=== PATIENT | male | born 1960 | race Hispanic/Latino ===

== ENCOUNTER 2019-07-03 08:27 | Observation (INO) | payer BC, SELFPAY ==
[2019-07-03 09:10] LABS: #Basophils 0.1 thou/uL (0.0-0.2); #Eosinphils 0.1 thou/uL (0.0-0.7); #Lymphocytes 1.5 thou/uL (1.20-3.40); #Monocytes 0.5 thou/uL (0.11-0.59); #Neutrophils 10.6 thou/uL (1.40-6.50); %Basophils 0.5 % (0.0-1.0); %Lymphocytes 11.7 % (21.0-51.0); %Monocytes 4.1 % (0.0-10.0); %Neutrophils 82.8 % (42.0-75.0); Hemoglobin 14.1 g/dL (14.0-18.0); Mean Corpuscular HGB CONC 31.8 g/dL (32.0-36.0); Mean Corpuscular Hemoglobin 26.9 pg (27.0-31.0); Mean Corpuscular Volume 84.6 fL (78.0-98.0); Mean Platelet Volume 6.8 fL (7.4-10.4); Platelet Count 367 thou/uL (130-400); RBC Distribution Width 12.9 % (11.5-14.5); Red Blood Cell (RBC) Count 5.24 mill/uL (4.70-6.10); White Blood Cell (WBC) Count 12.8 thou/uL (4.8-10.8)
[2019-07-03 09:30] LABS: ALT (SGPT) 22 U/L (8-55); AST (SGOT) 22 U/L (5-34); Albumin 4.2 g/dL (3.5-5.0); Alkaline Phosphatase 137 U/L (40-110); Anion Gap 12 mmol/L (10-20); BUN (Urea Nitrogen) 8 mg/dL (8.4-25.7); Bilirubin, Total 0.7 mg/dL (0.2-1.2); Calc. Creatinine Clearance 0 mL/min (70-130); Calcium 9.3 mg/dL (7.8-10.44); Carbon Dioxide 24 mmol/L (22-29); Chloride 100 mmol/L (98-107); Estimated GFR-MDRD Greater than 90; Globulin 3.6 g/dL (2.4-3.5); Glucose 127 mg/dL (70-105); Lipase 22 U/L (8-78); Protein, Total 7.8 g/dL (6.0-8.3); Sodium 132 mmol/L (136-145)
[2019-07-03 09:32] LABS: Bilirubin Negative (Negative); Blood, Urine 1+ (Negative); Clarity Clear (Clear); Glucose, Urine (Dipstick) Normal (Negative); Leukocyte Negative Leu/uL (Negative); Nitrite Negative (Negative); Protein, Urine (Dipstick) Negative (Neg-Trace); Squamous Epithelial None Seen HPF (0-3); Urobilinogen Normal mg/dL (Less than 2); WBC/HPF 0-3 HPF (0-3)
[2019-07-03] MEDS ORDERED: Lidocaine Viscous Sol 2% 15 ml UD Cup ONE (09:33)
[2019-07-03] MEDS ORDERED: Mag-Al 1200 mg/1200 mg/30 ML UDCUP ONE (09:34)
[2019-07-03] MEDS ORDERED: Ondansetron PF 4 MG/2 ML Vial ONE ×2 (09:35→10:49)
[2019-07-03 09:38] LABS: Bacteria/HPF 1+ HPF (None Seen)
--- NOTE | 2019-07-03 10:10 | CT ---
EXAM: CT Abdomen Pelvis W Con PROVIDED CLINICAL HISTORY: Abdominal pain COMPARISON: None FINDINGS: The visualized lung bases are free of significant opacity. There is a 2.5 cm left adrenal mass, slightly enlarged with respect to 12/11/2007 but demonstrating fin dings compatible with adenoma on that study. The gallbladder appears moderately distended. With a conspicuous appearance to the cystic duct. There is question of minimal pericholecystic inflammatory change. There is no evidence for intrahepatic or extrahepatic biliary ductal dilatation. The liver, spleen, right adrenal gland and pancreas demonstrate an unremarkable CT appearance. Bilate ral renal cysts, without additional renal abnormality apparent. No bowel dilatation, additional inflammatory fat stranding, free fluid or free air apparent. The appe ndix appears normal. Vascular calcification and atherosclerotic plaque are noted involving the abdominal aorta and its bra nches. The osseous structures demonstrate no concerning lytic or blastic lesions. IMPRESSION: Moderate gallbladder distention with subtle pericholecystic inflammatory change suspected. Correlate with concerns for acute cholecystitis.
[2019-07-03] MEDS ORDERED: Rocuronium Bromide 10 MG/ML (10ML VIAL) ONE (10:49)
[2019-07-03] MEDS ORDERED: PHENYLEPHRINE-NS 100 MCG/ML 10 ML SYRINGE ONE (10:49)
[2019-07-03] MEDS ORDERED: Ketorolac Tromethamine 30 MG/ML VIAL ONE (10:49)
[2019-07-03] MEDS ORDERED: Lidocaine 1% PF 5 ML VIAL ONE (10:49)
[2019-07-03] MEDS ORDERED: PROPOFOL 200 MG/20 ML VIAL ONE (10:49)
[2019-07-03] MEDS ORDERED: Dexamethasone 20 MG/5 ML VIAL ONE (10:49)
[2019-07-03] MEDS ORDERED: Succinylcholine Chloride 20 MG/ML 10 ml SYRINGE FS ONE (10:49)
--- NOTE | 2019-07-03 11:05 | ULT ---
EXAM: Right upper quadrant ultrasound PROVIDED CLINICAL HISTORY: Abdominal pain COMPARISON: CT performed earlier same date FINDINGS: Visualized portions of the pancreas appear normal. Liver demonstrates no mass or intrahepatic biliary ductal dilatation. Common duct is nondilated. Gallbladder demonstrates a focal area of increased echogenicity without sh adowing in the region of the gallbladder neck. There is gallbladder wall thickening to 4 mm without pericholecystic fluid or sonographic Altman's sign. Right kidney demonstrates no hydronephrosis or solid mass. Simple appearing cyst seen. IMPRESSION: Nonshadowing stone/sludge ball in the region of the gallbladder neck with gallbladder wall thickening . Correlate with concerns for acute cholecystitis.
--- NOTE | 2019-07-03 12:41 | HP ---
HISTORY OF PRESENT ILLNESS: Mr. Ledezma is a 59-year-old man, presented to emergency department today with insidious-onset severe epigastric abdominal pain, which started approximately 1 hour after dinner yesterday. Pain was associated with multiple episodes of nausea, but no emesis. He endorses abdominal bloating. He has experienced similar pain approximately 2 weeks ago, which was also postprandial in nature. He denies any radiation with respect to the pain. He denies any fevers or chills. PAST MEDICAL HISTORY: Pertinent for essential hypertension, for which he is currently noncompliant with his medications. PAST SURGICAL HISTORY: Denies any previous surgeries. SOCIAL HISTORY: He is , lives at home with his . 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 He smokes 6 cigarettes per day and has done so for over 20 years. He denies any ethanol or illicit drug abuse. FAMILY HISTORY: Notable for essential hypertension and diabetes mellitus. He denies any family history of heart disease or cancer. CURRENT MEDICATIONS: He is supposed to be on some antihypertensives, but is noncompliant. ALLERGIES: THE PATIENT DENIES ANY KNOWN DRUG ALLERGIES. REVIEW OF SYSTEMS: Ten-point review of systems is essentially unremarkable except as stated in past medical history and chief complaint. PHYSICAL EXAMINATION: GENERAL: This reveals a 59-year-old normally-developed man, who is otherwise coherent and interactive and appears stated age. The patient is alert and oriented x3, and appears to be in no acute distress at the time of my evaluation. VITAL SIGNS: Blood pressure is 188/94, pulse is 95, respiratory rate is 19, temperature is 98.4 degrees Fahrenheit, and oxygen saturation is 98% on room air. HEENT: Normocephalic and atraumatic. Pupils are equally round and reactive to light and accommodation. He has no scleral icterus present. HEART: Regular rate and rhythm. No murmurs or gallops auscultated. LUNGS: Clear to auscultation bilaterally. His breathing is regular and nonlabored. ABDOMEN: Soft with epigastric tenderness to palpation. Liver and spleen are nonpalpable below costal margins. NEUROLOGIC: No focal deficits present. LABORATORY FINDINGS: Today include a CBC with 12,800 white blood cells, hemoglobin and hematocrit are 14.1 and 44.3 respectively. Platelet count is 367,000. Metabolic profile; sodium is 132, potassium is 4.0, chloride is 100, bicarb is 24, BUN is 8, creatinine is 0.68, and glucose is 127. Total bilirubin is 0.7. AST and ALT are normal at 22 and 22 respectively. Alkaline phosphatase is slightly elevated at 137. I have personally reviewed the CT scan of the abdomen and pelvis, which is remarkable for distended gallbladder with pericholecystic inflammatory changes. Gallbladder ultrasound was obtained, which is remarkable for nonshadowing ball of sludge or stone impacting gallbladder neck. There is gallbladder wall thickening with no significant pericholecystic fluid present. Common bile duct is normal in diameter for this patient's age at 4.6 mm. IMPRESSION: Acute cholecystitis with cholelithiasis. PLAN: Laparoscopic cholecystectomy. Above findings and plan has been discussed with the patient and his at bedside. I have informed him of the risks and benefits of proposed surgery to include, but not limited to bleeding, infection, injury to bile duct or surrounding structures. The patient indicates understanding information given. I have answered his questions. The patient has granted consent for this admission and surgical intervention. Job ID: [id number]
[2019-07-03] MEDS ORDERED: Iopamidol-370 76% 500 ML 1 ML ONE (13:35)
[2019-07-03] MEDS ORDERED: Fentanyl 100 MCG/2 ML VIAL ONE ×3 (13:58→17:32)
[2019-07-03] MEDS ORDERED: EPINEPHrine 1 MG/ML AMP ONE (14:27)
[2019-07-03] MEDS ORDERED: Bupivacaine 0.25% HCL 30 ML VIAL ONE (14:27)
[2019-07-03] MEDS ORDERED: Mag-Al 1200 mg/1200 mg/30 ML UDCUP PO PRN (17:08)
[2019-07-03] MEDS ORDERED: Ondansetron PF 4 MG/2 ML Vial IVP PRN (17:08)
[2019-07-03] MEDS ORDERED: Promethazine HCl 25 MG/ML VIAL SLOW IVP PRN (17:08)
[2019-07-03] MEDS ORDERED: Ondansetron HCl/PF 4 MG/2 ML Vial IVP PRN (17:08)
[2019-07-03] MEDS ORDERED: hydrALAZINE 20 MG/ML VIAL SLOW IVP PRN (17:08)
[2019-07-03] MEDS ORDERED: Calcium Carbonate 500 MG ChewTAB PO PRN (17:08)
[2019-07-03] MEDS ORDERED: Dextrose 50% Abboject 50 ML SYRINGE SLOW IVP PRN (17:08)
[2019-07-03] MEDS ORDERED: HYDROmorphone 2 MG/ML VIAL SLOW IVP PRN (17:08)
[2019-07-03] MEDS ORDERED: Promethazine HCl 25 MG/ML VIAL IM PRN (17:08)
[2019-07-03] MEDS ORDERED: Dextrose 5% in Water 1,000 ML IV PRN (17:08)
[2019-07-03] MEDS ORDERED: Meperidine HCl/PF 25 MG/ML VIAL SLOW IVP PRN (17:08)
[2019-07-03] MEDS ORDERED: traMADol HCl 50 MG TAB PO PRN ×2 (17:14)
[2019-07-03] MEDS ORDERED: Labetalol HCl 100 MG/20 ML VIAL ONE (17:16)
[2019-07-03] MEDS: Ketorolac Tromethamine 30 MG/ML VIAL IVP SCH ×2 (19:38→23:43)
[2019-07-03 19:57] VITALS: BMI 26.6
[2019-07-03] MEDS: Famotidine 20 MG TAB PO SCH (20:45)
[2019-07-03] MEDS: Lactated Ringer's 1,000 ML IV SCH (20:45)
[2019-07-03] MEDS ORDERED: Famotidine/PF 20 mg/2ml Vial SLOW IVP SCH (21:00)
--- NOTE | 2019-07-03 22:26 | OP ---
DATE OF PROCEDURE: 07/03/2019 PREOPERATIVE DIAGNOSIS: Acute cholecystitis cholelithiasis. POSTOPERATIVE DIAGNOSIS: Acute on chronic cholecystitis with cholelithiasis. OPERATION PERFORMED: Laparoscopic cholecystectomy. ANESTHESIA: General endotracheal. ESTIMATED BLOOD LOSS: 100 mL. FLUIDS GIVEN: 1000 mL crystalloids. COUNTS: Sponge and instrument counts were verified as correct x2. COMPLICATIONS: None apparent at the time of operation. INDICATIONS FOR OPERATION: A 59-year-old man, presented with recurrent epigastric right upper quadrant abdominal pain after eating. Clinical radiographic examination was consistent with acute cholecystitis, cholelithiasis, for which the patient was brought to the operating room for cholecystectomy. Findings are consistent with markedly distended gallbladder, completely encased by omental adhesions with significant fibrosis. DESCRIPTION OF PROCEDURE: Informed consent was obtained from the patient. He was brought to the operating room and placed in supine position. Following general anesthesia, abdomen was sterilely prepped and draped in usual fashion. The skin below the umbilicus was infiltrated with 0.25% Marcaine with epinephrine. A small curvilinear infraumbilical incision was made using #11 scalpel. Umbilical stalk was grasped with Tami and elevated. Veress needle was inserted through the incision and placed in peritoneal cavity through which the abdomen was insufflated with 3 L of CO2 gas. Intraabdominal pressure was noted at 2 mmHg. Following abdominal insufflation, Veress needle was removed, and a 5-mm trocar introduced using a Visiport under laparoscopy. Laparoscopy confirmed proper placement of the port, no injuries to underlying structures. Additional laparoscopy reveals the right upper quadrant completely encased by omental adhesions. Under direct laparoscopy, a 12-mm epigastric and two 5-mm right lateral subcostal ports were placed after the overlying skin was infiltrated with 0.25% Marcaine with epinephrine. Appropriate incision was made. The patient was placed in a reverse Trendelenburg position, rotated to his left. I introduced a [place] dissector with cautery to take down omental adhesions revealing the fundus of the gallbladder. I attempted to grasp the fundus of the gallbladder multiple attempts without success. As a result, gallbladder wall was markedly thickened and distended and port. Using a grasper with teeth, we then were able to grasp the fundus of the gallbladder, excess amount of white bile egressed. Omental adhesions were then meticulously taken down from remainder of the gallbladder. The fundus of the gallbladder was elevated cephalad. A second Prestige grasper was introduced through the right medial subcostal port grasping the Nader pouch which was retracted laterally. The cystic duct was carefully dissected free from surrounding structures and divided between clips, applying 2 clips proximally and 1 clip at the junction of the cystic duct and gallbladder. Cystic artery dissected free from surrounding structures and divided between clips in a similar fashion. The gallbladder itself was removed from the liver bed using cautery. It was passed off the operative field using EndoCatch. Gallbladder fossa was oozy, and immediate hemostasis was achieved using Lupe. A #19 Joel drain was introduced into the subhepatic space and allowed to exit the abdominal cavity through the right lateral subcostal port. The drain was secured to anterior abdominal wall using 2-0 silk suture. Finding no other pathology, laparoscopy was terminated. Fascia of the epigastric port was closed using 0 Vicryl suture and Endoclosure device on the laparoscopy. The abdomen was desufflated. All ports and instruments were removed and accounted for. Skin incisions were closed using 4-0 Monocryl suture in subcuticular fashion. Dermabond was applied over incisional closure. The patient tolerated the operation without any apparent complication and was returned to recovery room in satisfactory condition. Job ID: [id number]
--- NOTE | 2019-07-04 00:26 | PRG ---
DATE OF SERVICE: 07/03/2019 SUBJECTIVE: The patient was seen this evening during rounds. He is postoperative day 0 status post lap madeline by Dr. Emmanuel today. At the time of my evaluation, the patient was resting in bed, asleep, with no signs of acute distress. Nursing reported no acute events. There was a tray with clear liquid diet, which was completely consumed. I assume that this means he was tolerating it. OBJECTIVE: VITAL SIGNS: Temperature 97.4, pulse 77, respirations 16, oxygen saturation 97% on room air, blood pressure 168/83. GENERAL: Well-appearing middle-aged male, lying in bed, asleep with no signs of acute distress. PULMONARY: Equal chest rise and fall. No signs of acute respiratory distress. ASSESSMENT: 1. Postoperative day 0 status post laparoscopic cholecystectomy for acute cholecystitis with cholelithiasis. 2. History of hypertension, noncompliant. PLAN: Continue current clear liquid diet. Continue LR 100 an hour. Continue previously ordered pain regimen. The patient is to start amlodipine tomorrow for blood pressure control. We will continue to monitor overnight and treat p.r.n. Repeat blood work in the morning. We will likely advance his diet tomorrow and discontinue IV fluids. He continues to do well. Job ID: [id number]
[2019-07-04 05:18] LABS: #Lymphocytes 1.4 thou/uL (1.20-3.40); #Monocytes 0.6 thou/uL (0.11-0.59); %Eosinophils 0.1 % (0.0-10.0); %Lymphocytes 9.1 % (21.0-51.0); %Monocytes 3.7 % (0.0-10.0); %Neutrophils 87.1 % (42.0-75.0); Hemoglobin 12.8 g/dL (14.0-18.0); Mean Corpuscular HGB CONC 33.1 g/dL (32.0-36.0); Mean Corpuscular Hemoglobin 28.2 pg (27.0-31.0); Mean Corpuscular Volume 85.2 fL (78.0-98.0); Mean Platelet Volume 6.8 fL (7.4-10.4); Platelet Count 308 thou/uL (130-400); RBC Distribution Width 12.8 % (11.5-14.5); Red Blood Cell (RBC) Count 4.54 mill/uL (4.70-6.10)
[2019-07-04 05:47] LABS: ALT (SGPT) 45 U/L (8-55); AST (SGOT) 50 U/L (5-34); Albumin 3.5 g/dL (3.5-5.0); Alkaline Phosphatase 103 U/L (40-110); Anion Gap 12 mmol/L (10-20); BUN (Urea Nitrogen) 8 mg/dL (8.4-25.7); Bilirubin, Total 0.6 mg/dL (0.2-1.2); Calc. Creatinine Clearance 133 mL/min (70-130); Calcium 8.8 mg/dL (7.8-10.44); Carbon Dioxide 25 mmol/L (22-29); Chloride 104 mmol/L (98-107); Estimated GFR-MDRD Greater than 90; Glucose 121 mg/dL (70-105); Magnesium 1.9 mg/dL (1.6-2.6); Potassium 4.2 mmol/L (3.5-5.1); Protein, Total 6.5 g/dL (6.0-8.3); Sodium 137 mmol/L (136-145)
[2019-07-04] MEDS: Lactated Ringer's 1,000 ML IV SCH (05:55)
[2019-07-04] MEDS: Ketorolac Tromethamine 30 MG/ML VIAL IVP SCH ×2 (05:55→11:33)
[2019-07-04] MEDS: Famotidine 20 MG TAB PO SCH (08:35)
[2019-07-04] MEDS ORDERED: FLU VACC QS2019-20(6MOS UP)/PF 60 MCG/0.5 ML SYRINGE IM ONE (09:00)
[2019-07-04] MEDS ORDERED: Amlodipine 10 MG TAB PO SCH (09:00)
[2019-07-04] MEDS ORDERED: Enoxaparin Sodium 40 MG/0.4 ML SYRINGE SC SCH (09:00)
[2019-07-04] MEDS ORDERED: Acetaminophen 500 MG TAB PO SCH (12:00)
[2019-07-04 15:45] VITALS: BP 131/70; TEMP 98
--- NOTE | 2019-07-04 18:39 | DIS ---
DATE OF ADMISSION: 07/03/2019 DATE OF DISCHARGE: 07/04/2019 This is Vi Licona NP dictating a report for Alexandre Emmanuel DO. ATTENDING SURGEON: Alexandre Emmanuel DO DISCHARGE ATTENDING: Alexandre Emmanuel DO PROCEDURES: On 07/03/2019, CT abdomen and pelvis was remarkable for distended gallbladder with pericholecystic inflammatory changes. Gallbladder ultrasound remarkable for non-shadowing ball of sludge or stone impacting gallbladder neck. There is gallbladder wall thickening with no significant pericholecystic fluid present. Common bile duct normal in diameter for the patient's age at 4.6 mm. On 07/03/2019, laparoscopic cholecystectomy for acute on chronic cholecystitis with cholelithiasis. A SIM drain was placed. PRIMARY DIAGNOSIS: Acute cholecystitis with cholelithiasis. DISCHARGE MEDICATIONS: 1. Norvasc 5 mg p.o. daily #30. 2. Tramadol 50 mg 1 to 2 tabs q.6 hours p.r.n. pain #20. 3. Tylenol 1000 mg p.o. q.6 hours. 4. Aspirin 325 mg p.o. daily. HISTORY OF PRESENT ILLNESS AND HOSPITAL COURSE: This is a 59-year-old man, who presented to the emergency room with insidious onset of severe epigastric pain that started an hour after he ate dinner. His pain was associated with multiple episodes of nausea, but no emesis. The patient did report abdominal bloating. He also experienced similar pain two weeks ago. The patient's pain was well controlled pre and postop. On the day of discharge, the patient's SIM drain put out a total of 500 sanguinous output. The patient's SIM drain was removed and a dressing was applied. The patient voices no complaints or concerns. The patient tolerated a clear diet overnight and a regular diet this morning. The patient's exam was unremarkable including cardiopulmonary and GI exam. The patient's vital signs were stable. The patient was examined by Dr. Emmanuel during morning rounds. The patient was deemed stable for discharge home. DISPOSITION: Stable. INSTRUCTIONS: LOCATION: Home. DIET: Regular diet as tolerated. ACTIVITY: No heavy lifting greater than 20 pounds for 2 weeks. The patient was instructed not to soak wounds and keep his wounds clean and dry. FOLLOWUP: Follow up on July 17, 2019, at 11 a.[facility] Follow up with primary care physician regarding elevated blood pressure and the need to get medications refilled. [facility] was accessed and there was no history of previous prescriptions. Job ID: [id number] MTDD
[2019-07-05] MEDS ORDERED: Aspirin 325 mg Enteric Coated Tablet PO SCH (09:00)
[2019-07-05] MEDS ORDERED: Amlodipine 5 MG TAB PO SCH (09:00)
== END 2019-07-04 16:29 | disposition home or self-care (01) ==
LOC: ERS 08:27 → SDC 13:25 → SJJU 17:15
PROVIDERS: ADMIT Surgery; ATTEND Surgery
PROC: 0FT44ZZ Resection of Gallbladder, Percutaneous Endoscopic Approach (ICD-10-PCS; principal; 2019-07-04)
DX: K80.12 Calculus of gallbladder with acute and chronic cholecystitis without obstruction (principal); I10 Essential (primary) hypertension; F17.210 Nicotine dependence, cigarettes, uncomplicated; Z79.82 Long term (current) use of aspirin; Z91.14 Patient's other noncompliance with medication regimen
CPT/HCPCS: 36415; 74177; 76705; 80053; 81003; 81015; 83690; 83735; 84100; 84484; 85025; 88304; 93005; 96361; 96372; 96374; 96375; G0378; J0171; J0690; J1100; J1650; J1885; J2001; J2405; J2704; J3010; Q9967; S0020

== ENCOUNTER 2019-09-16 11:02 | Observation (INO) | payer BC ==
[2019-09-16] MEDS ORDERED: Adenosine 6 MG/2 ML VIAL ONE (11:12)
[2019-09-16 11:26] LABS: #Eosinphils 0.1 thou/uL (0.0-0.7); #Lymphocytes 1.8 thou/uL (1.20-3.40); #Monocytes 0.9 thou/uL (0.11-0.59); #Neutrophils 12.6 thou/uL (1.40-6.50); %Basophils 0.3 % (0.0-1.0); %Eosinophils 0.9 % (0.0-10.0); %Lymphocytes 11.4 % (21.0-51.0); %Monocytes 5.5 % (0.0-10.0); %Neutrophils 81.9 % (42.0-75.0); Hemoglobin 15.1 g/dL (14.0-18.0); Mean Corpuscular HGB CONC 32.5 g/dL (32.0-36.0); Mean Corpuscular Hemoglobin 27.8 pg (27.0-31.0); Mean Corpuscular Volume 85.6 fL (78.0-98.0); Mean Platelet Volume 6.8 fL (7.4-10.4); Platelet Count 373 thou/uL (130-400); RBC Distribution Width 13.4 % (11.5-14.5); Red Blood Cell (RBC) Count 5.43 mill/uL (4.70-6.10); White Blood Cell (WBC) Count 15.4 thou/uL (4.8-10.8)
[2019-09-16 11:54] LABS: ALT (SGPT) 16 U/L (8-55); AST (SGOT) 24 U/L (5-34); Albumin 4.1 g/dL (3.5-5.0); Alkaline Phosphatase 145 U/L (40-110); Anion Gap 17 mmol/L (10-20); BUN (Urea Nitrogen) 11 mg/dL (8.4-25.7); Bilirubin, Total 0.9 mg/dL (0.2-1.2); CK (CPK) 88 U/L (30-200); Calc. Creatinine Clearance 0 mL/min (70-130); Calcium 9.4 mg/dL (7.8-10.44); Carbon Dioxide 22 mmol/L (22-29); Chloride 100 mmol/L (98-107); Estimated GFR-MDRD 64; Globulin 3.8 g/dL (2.4-3.5); Glucose 121 mg/dL (70-105); Magnesium 1.7 mg/dL (1.6-2.6); Potassium 4.8 mmol/L (3.5-5.1); Protein, Total 7.9 g/dL (6.0-8.3); Sodium 134 mmol/L (136-145)
[2019-09-16 11:56] LABS: Bilirubin Negative (Negative); Blood, Urine Negative (Negative); Clarity Clear (Clear); Glucose, Urine (Dipstick) 30 mg/dL (Negative); Leukocyte Negative Leu/uL (Negative); Nitrite Negative (Negative); Protein, Urine (Dipstick) 70 mg/dL (Neg-Trace); RBC/HPF 0-3 HPF (0-3); Squamous Epithelial 0-3 HPF (0-3); Urobilinogen Normal mg/dL (Less than 2); WBC/HPF 0-3 HPF (0-3)
[2019-09-16 11:57] LABS: Bacteria/HPF 1+ HPF (None Seen)
--- NOTE | 2019-09-16 12:08 | RAD ---
Exam: Chest one view HISTORY:Shortness of breath. Chest pain. Tachycardia Comparison: 01/28/2015 FINDINGS: Cardiac silhouette: Normal Aorta: Unremarkable Pulmonary vessels: Normal Costophrenic angles: Clear LUNGS: No masses or consolidation. Pneumothorax: None Osseous abnormalities: None IMPRESSION: No acute cardiopulmonary process.
[2019-09-16 12:12] LABS: CKMB 2.4 ng/mL (0-6.6)
[2019-09-16] MEDS ORDERED: Bisacodyl 10 MG SUPP PR PRN (14:25)
[2019-09-16] MEDS ORDERED: Ondansetron ODT 4 MG TAB PO PRN (14:25)
[2019-09-16] MEDS ORDERED: Zolpidem Tartrate 5 MG TAB PO PRN (14:25)
[2019-09-16] MEDS ORDERED: Loratadine 10 MG TAB PO PRN (14:25)
[2019-09-16] MEDS ORDERED: HYDROcodone/Acetaminophen 5/325 mg Tablet PO PRN (14:25)
[2019-09-16] MEDS ORDERED: Loperamide HCl 2 MG CAP PO PRN (14:25)
[2019-09-16] MEDS ORDERED: Ondansetron PF 4 MG/2 ML Vial IVP PRN (14:25)
[2019-09-16] MEDS ORDERED: Acetaminophen 325 MG TAB PO PRN (14:25)
[2019-09-16] MEDS ORDERED: Cepastat Lozenges 1 LOZ PO PRN (14:25)
[2019-09-16] MEDS ORDERED: Nitroglycerin 0.4 MG TAB (25 Tab Bottle) PO PRN (14:25)
[2019-09-16] MEDS ORDERED: Senokot S 8.6-50 MG TAB PO PRN (14:25)
[2019-09-16] MEDS ORDERED: Calcium Carbonate 500 MG ChewTAB PO PRN (14:25)
[2019-09-16] MEDS ORDERED: Guaifenesin DM 100-10/5 ML UDCUP PO PRN (14:25)
[2019-09-16] MEDS ORDERED: hydrALAZINE 20 MG/ML VIAL SLOW IVP PRN (14:25)
[2019-09-16 15:08] VITALS: BMI 22.1
--- NOTE | 2019-09-16 16:06 | HP ---
PRIMARY CARE PHYSICIAN: [facility] Call admission. REASON FOR ADMISSION: SVT and chest pain. HISTORY OF PRESENT ILLNESS: A 59-year-old male, who has underlying history of hypertension, who presented to emergency room with complaint of chest pain, shortness of breath, and palpitation. The patient was having on and off palpitation and shortness of breath at home for about 1 day. His chest pain was predominantly left-sided and without any radiation or without any association of nausea or vomiting. He was feeling dizzy, lightheaded, and weak. When the patient arrived to emergency room, the patient was found with SVT with heart rate of 163. He was also having relatively low blood pressure. The patient was having symptomatic SVT and that is why the patient was treated with adenosine in the emergency room and he was converted to sinus rhythm. The patient was also given aspirin and subsequently, he was admitted to telemetry floor. When I saw this patient at that time, the patient was asymptomatic and he was in sinus rhythm. He did not have any further episode of SVT. The patient denies any excessive caffeinated product. PAST MEDICAL HISTORY: Hypertension, diabetes type 2. PAST SURGICAL HISTORY: The patient has some kind of surgical intervention, but the patient is not able to provide any details. PAST PSYCHIATRIC HISTORY: Reviewed and negative. SOCIAL HISTORY: The patient drinks alcohol every week. He also smokes about half pack per day. He denies any other illicit drugs. FAMILY HISTORY: No strong family history of premature coronary artery disease, stroke, or cancer. ALLERGIES: NO KNOWN DRUG ALLERGIES. CURRENT HOME MEDICATION: Irbesartan with hydrochlorothiazide 150/12.5 one tablet p.o. daily. REVIEW OF SYSTEMS: CONSTITUTIONAL: Negative for weight loss or gain, ability to conduct usual activities. SKIN: Negative for rash, itching. EYES: Negative for double vision, pain. ENT/MOUTH: Negative for nose bleeding, neck stiffness, pain, tenderness. CARDIOVASCULAR: Negative for palpitations, dyspnea on exertion, orthopnea. RESPIRATORY: Negative for shortness of breath, wheezing, cough, hemoptysis, fever or night sweats. GASTROINTESTINAL: Negative for poor appetite, abdominal pain, heartburn, nausea, vomiting, constipation, or diarrhea. GENITOURINARY: Negative for urgency, frequency, dysuria, nocturia. MUSCULOSKELETAL: Negative for pain, swelling. NEUROLOGIC/PSYCHIATRIC: Negative for anxiety, depression. ALLERGY/IMMUNOLOGIC: Negative for skin rash, bleeding tendency. Please see my HPI for pertinent positives and negatives. All other review of systems reviewed and negative except as mentioned in HPI. EMERGENCY ROOM COURSE: The patient is given adenosine 6 mg and IV fluid. PHYSICAL EXAMINATION: VITAL SIGNS: On arrival, blood pressure 103/75, pulse 163, respiratory rate 18, temperature 97.9, saturation 99% on room air. Weight 71.2 kg. GENERAL: The patient is currently alert and oriented x3. HEAD: Normocephalic, atraumatic. EYES: Pupils round, reactive to light. Extraocular muscles intact. ENT: Oropharynx within normal limits. Moist mucous membranes. No oral lesions. No pharyngeal erythema. No exudate. NECK: Supple. No JVD. No meningeal signs of irritation. LUNGS: Clear to auscultation without any rhonchi or rales. CARDIAC: S1 and S2 regular. No murmur. No gallop. No rub. ABDOMEN: Soft, bowel sounds present, nontender, nondistended. No organomegaly. No mass. EXTREMITIES: No edema. Good distal pulsation. NEUROLOGIC: Nonfocal examination. SKIN: No skin rash. HEMATOLOGIC: No lymphadenopathy. PSYCHIATRIC: Normal affect. SIGNIFICANT LABORATORY DATA: EKG; initial EKG showed SVT, subsequent EKG showed normal sinus rhythm. Chest x-ray based on my review, no acute cardiopulmonary process. CBC; WBC 15.4, hemoglobin 15.1, and platelets 373. BMP; sodium 134, potassium 4.8, chloride 100, carbon dioxide 22, BUN 11, creatinine 1.16, glucose 121, calcium 9.4, magnesium 1.7. LFT; AST 24, ALT 16, alkaline phosphatase 145, albumin 4.1. CK-MB 2.4, troponin-I 0.031. BNP 58.3. Urinalysis normal. ASSESSMENT AND PLAN AND IMPRESSION: 1. Supraventricular tachycardia, one episode, converted to sinus rhythm after adenosine. We will start metoprolol 25 mg p.o. b.i.d. Cardiology will be consulted, and we will check TSH. 2. Chest pain, likely related with supraventricular tachycardia episode. We will do serial cardiac enzymes x3. The patient has indeterminate troponin, likely related with supraventricular tachycardia and his chest pain probably related with supraventricular tachycardia. We will continue with aspirin 81 mg p.o. daily. We will check lipid profile tomorrow morning for risk stratification. Cardiology has been consulted. We will obtain echocardiography. Further decision will defer to Cardiology. 3. Hypertension. We will continue irbesartan with hydrochlorothiazide 1 tablet p.o. daily. We will also add metoprolol 25 mg p.o. twice daily. 4. Tobacco abuse disorder. Smoking cessation counseling given. 5. Deep venous thrombosis prophylaxis, Lovenox 40 mg subcu daily. 6. Gastrointestinal prophylaxis, Pepcid 20 mg p.o. b.i.d. CODE STATUS: The patient is full code. DISPOSITION PLAN: Based on clinical course and cardiology recommendation. We are expecting the patient stay in hospital is 24 to 48 hours. Plan of care discussed with the patient in detail. Job ID: [id number]
[2019-09-16 16:13] LABS: Troponin I 0.081 ng/mL (< 0.028)
[2019-09-16 18:15] LABS: Troponin I 0.086 ng/mL (< 0.028)
[2019-09-16] MEDS: Metoprolol Tartrate 25 MG TAB PO SCH (20:35)
[2019-09-16] MEDS: Famotidine 20 MG TAB PO SCH (20:35)
--- NOTE | 2019-09-16 23:29 | CON ---
DATE OF CONSULTATION: HISTORY: Chris Ledezma is a 59-year-old male, who speaks some Niuean, but this interview was performed with size worker. He denies ever having any type of heart problem or palpitations in the past. Today, he noticed that his heart seemed to be beating very rapidly. He was short of breath, weak, somewhat diaphoretic. He checked his blood pressure which was low. His heart rate was 170 and so he decided to come to the emergency room. In the hospital record, it states that he had chest discomfort. However, in discussing this with him through a size worker, he denied that he had any pressure, tightness, burning, sharp stabbing pain, etc., in his chest. He has had slight elevation of his troponin I. At the present time, he has no complaints. PAST MEDICAL HISTORY: Hypertension. He denies any history of diabetes or hypercholesterolemia. MEDICATIONS: Irbesartan-hydrochlorothiazide 150-12.5 q.a.m. ALLERGIES: NONE. OPERATIONS: Laparoscopic cholecystectomy at this hospital in June 2019. SOCIAL HISTORY: Smokes 5 or 6 cigarettes per day. He occasionally drinks alcohol. He works in [employer]. FAMILY HISTORY: Father of myocardial infarction at age 52 and 2 brothers have had bypass surgery. REVIEW OF SYSTEMS: Unremarkable. PHYSICAL EXAMINATION: VITAL SIGNS: Blood pressure 168/109, pulse 78. HEENT: PERRL. NECK: Supple. CHEST: Clear. CARDIAC: S1 and S2 normal without any S3, S4, or murmurs. Carotid upstrokes are normal without bruits. ABDOMEN: Normal bowel sounds without tenderness or organomegaly. EXTREMITIES: Revealed no clubbing, cyanosis, or edema. NEUROLOGIC: Grossly intact. SKIN: Warm and dry. LABORATORY DATA: EKG on arrival revealed supraventricular tachycardia at a rate of 161 per minute, nonspecific ST-segment changes. Hemoglobin 15.1, hematocrit 46.5, white count 15,400, platelets 373,000. Sodium 134, potassium 4.8, chloride 100, carbon dioxide 22, BUN 11, creatinine 1.16, glucose 121. Troponin I is up to 0.081. TSH is normal. IMPRESSION: 1. Supraventricular tachycardia. The patient was hypotensive in the emergency room. Blood pressure was 85/66. He was given adenosine 6 mg IV and converted to sinus rhythm. 2. [id number] myocardial infarction, probably type 2. 3. Hypertension. 4. Positive family history. 5. Smoker. PLAN: Echocardiogram will be performed. With cardiac deaths at a fairly young age with his father dying at age 52, and slight elevation of his cardiac enzymes, he will undergo adenosine Cardiolite testing. Electrophysiology will be consulted for possible ablation. Ablation was discussed with the patient and he seems agreeable. Job ID: [id number] MTDD
[2019-09-17 04:46] LABS: #Eosinphils 0.4 thou/uL (0.0-0.7); #Lymphocytes 1.8 thou/uL (1.20-3.40); #Monocytes 0.5 thou/uL (0.11-0.59); #Neutrophils 6.3 thou/uL (1.40-6.50); %Basophils 0.2 % (0.0-1.0); %Eosinophils 4.4 % (0.0-10.0); %Neutrophils 70.3 % (42.0-75.0); Mean Corpuscular Hemoglobin 27.9 pg (27.0-31.0); Mean Corpuscular Volume 87.3 fL (78.0-98.0); Mean Platelet Volume 7.1 fL (7.4-10.4); Platelet Count 275 thou/uL (130-400); RBC Distribution Width 13.5 % (11.5-14.5); Red Blood Cell (RBC) Count 4.65 mill/uL (4.70-6.10)
[2019-09-17 05:12] LABS: Anion Gap 11 mmol/L (10-20); BUN (Urea Nitrogen) 15 mg/dL (8.4-25.7); Calc. Creatinine Clearance 109 mL/min (70-130); Calcium 8.5 mg/dL (7.8-10.44); Carbon Dioxide 25 mmol/L (22-29); Chloride 107 mmol/L (98-107); Cholesterol 141 mg/dl (< 200 Desired); Estimated GFR-MDRD Greater than 90; Glucose 113 mg/dL (70-105); HDL Cholesterol 35 mg/dL (>60 Neg Risk); LDL Cholesterol, Calculated 94 mg/dL; Sodium 139 mmol/L (136-145); Triglycerides 61 mg/dL (Less than 150)
[2019-09-17] MEDS: Enoxaparin Sodium 40 MG/0.4 ML SYRINGE SC SCH (06:37)
[2019-09-17] MEDS: Famotidine 20 MG TAB PO SCH ×2 (06:38→20:49)
[2019-09-17] MEDS: Aspirin Chewable 81 MG TAB PO SCH (06:38)
[2019-09-17] MEDS ORDERED: ADENOSINE 60 MG/20 ML VIAL ONE (09:14)
[2019-09-17] MEDS: Metoprolol Tartrate 25 MG TAB PO SCH ×2 (13:31→20:49)
--- NOTE | 2019-09-17 14:19 | PDOC.HOSPP ---
- Subjective Subjective: Seen and examined. Patient currently undergoing echocardiogram. No chest pain this morning. Breathing comfortably. No acute complaints. Time was given for questions, all answered in detail. - Objective Vital Signs & Weight: Vital Signs (12 hours) Temp Pulse Resp BP Pulse Ox 09/17/19 11:55 97.7 F 57 L 16 146/68 H 98 09/17/19 07:23 98.2 F 88 16 145/65 H 97 09/17/19 07:05 96 09/17/19 03:19 98.2 F 70 20 123/66 96 Weight Weight 154 lb 6.4 oz I&O: 09/16/19 09/17/19 09/18/19 06:59 06:59 06:59 Intake Total 540 Balance 540 Result Diagrams: 09/17/19 04:19 09/17/19 04:19 Additional Labs: Accuchecks 09/17/19 06:05 POC Glucose 111 H Radiology Reviewed by me: Yes Hospitalist ROS - Review of Systems All other systems reviewed; all pertinent +/- noted in HPI/Subj - Medication Medications: Active Medications Generic Name Dose Route Start Last Admin Trade Name Freq PRN Reason Stop Dose Admin Aspirin 81 mg 09/17/19 09:00 09/17/19 06:38 Aspirin Chewable PO 81 mg DAILY SONYA Administration Enoxaparin Sodium 40 mg 09/17/19 09:00 09/17/19 06:37 Lovenox SC 40 mg 0900 SONYA Administration Famotidine 20 mg 09/16/19 21:00 09/17/19 06:38 Pepcid PO 20 mg BID SONYA Administration HCTZ/Losartan Potassium 1 tab 09/17/19 09:00 09/17/19 13:30 Hyzaar 50/12.5 PO Not Given DAILY SONYA Metoprolol Tartrate 25 mg 09/16/19 21:00 09/17/19 13:31 Lopressor PO Not Given BID SONYA - Exam General Appearance: NAD, awake alert Eye: anicteric sclera ENT: normocephalic atraumatic, moist mucosa Neck: supple, symmetric, no lymphadenopathy Heart: RRR, no murmur, no gallops, no rubs Respiratory: CTAB, no wheezes, no rales, no ronchi, normal chest expansion Gastrointestinal: soft, non-tender, non-distended, no guarding, no rigidity Extremities: no edema Skin: no lesions, no rashes Neurological: cranial nerve grossly intact, no focal deficits Musculoskeletal: no muscle wasting Psychiatric: normal affect, A&O x 3 Hosp A/P (1) SVT (supraventricular tachycardia) Code(s): I47.1 - SUPRAVENTRICULAR TACHYCARDIA Status: Acute (2) Chest pain Code(s): R07.9 - CHEST PAIN, UNSPECIFIED Status: Acute (3) DM (diabetes mellitus) Code(s): E11.9 - TYPE 2 DIABETES MELLITUS WITHOUT COMPLICATIONS Status: Acute (4) HTN (hypertension) Code(s): I10 - ESSENTIAL (PRIMARY) HYPERTENSION Status: Acute (5) HLD (hyperlipidemia) Code(s): E78.5 - HYPERLIPIDEMIA, UNSPECIFIED Status: Acute (6) Tobacco abuse Code(s): Z72.0 - TOBACCO USE Status: Acute - Plan Plan: medical unit with telemetry cardiology consultation, recommendations appreciated May need EP study echocardiogram pending nuclear medicine stress test pending SVT, status post cardioversion with adenosine continuous telemetry to monitor for recurrence of arrhythmia continue home medications is able blood sugar control blood pressure control G.I. prophylaxis DVT prophylaxis
--- NOTE | 2019-09-17 14:30 | CON ---
DATE OF CONSULTATION: 09/17/2019 Dictated by Flor Romero, nurse practitioner, as a scribe for Dr. Clifton Delacruz. TIME SEEN: 8:00 a.m. REASON FOR CONSULTATION: Supraventricular tachycardia. HISTORY OF PRESENT ILLNESS: Mr. Ledezma is a 59-year-old gentleman, mostly Maltese speaking. He presented to the hospital with shortness of breath, weakness, slightly diaphoretic, and some chest discomfort. His heart rate was 170 beats per minute. He was found to be in SVT. Cardiology consultation was performed, and he is undergoing a stress test today. EP consultation is requested due to his SVT. Mr. Ledezma is feeling well. He is going for a stress test in a little while. He is not currently having any heart racing, palpitations, chest pain, pressure, stroke, stroke-like symptoms, and denies any recent syncopal episodes or history of syncopal episode. REVIEW OF SYSTEMS: A 12-point review of systems is negative except that listed above in HPI. PAST MEDICAL HISTORY: Hypertension. HOME MEDICATIONS: Irbesartan/hydrochlorothiazide 150/12.5 mg p.o. daily. ALLERGIES: NONE. SOCIAL HISTORY: Positive for tobacco habituation, 5 to 6 cigarettes a day. Occasional alcohol consumption. Denies illicit drug use. FAMILY HISTORY: Father from an [place] at 52 and 2 brothers have had bypass surgery. Denies any family history of sudden cardiac or strokes. OBJECTIVE: VITAL SIGNS: Temperature 98.2, pulse 88, blood pressure 145/65, respirations 16, and oxygen 97% on room air. GENERAL: The patient is alert and oriented. Speech is clear. Affect is appropriate. No apparent distress at the time of the exam. Exam and interview conducted in Maltese. HEENT: The patient is normocephalic and atraumatic. Sclerae anicteric. EOMs are intact. Oral mucosa is moist and pink with adequate dentition. NECK: Supple. There is no lymphadenopathy. HEART: Rate is irregularly irregular with crisp S1 and S2. PMI is nondisplaced. LUNGS: Clear to auscultation. Respirations are even and unlabored with good bilateral excursion. ABDOMEN: Soft and nontender without palpable masses. EXTREMITIES: Warm and dry to touch and well perfused without clubbing, cyanosis, or edema. NEUROLOGIC: Grossly intact and nonfocal. Gait was not assessed. DATABASE: Telemetry and EKG show supraventricular tachycardia, suggestive of AVNRT and also paroxysmal atrial tachycardia. LABORATORY DATA: Hematology: Unremarkable. Chemistry: Potassium 4.0 and creatinine 0.72. Troponin elevation was indeterminate, highest at 0.086, thought to be demand ischemia from his tachycardia. TSH 0.73. Magnesium 1.7. IMPRESSION: 1. 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 2. Paroxysmal atrial tachycardia. 3. Hypertension. 4. Chest pain. PLAN AND RECOMMENDATIONS: Mr. Ledezma is a pleasant 59-year-old gentleman who was in supraventricular tachycardia that was responsive to adenosine, suggestive of AVNRT. He has also been seen to have paroxysmal atrial tachycardia runs. Discussed different treatment options including medication management versus an ablation. My recommendation would be for an ablation given the high success and low complication rate. We discussed the risks, benefits, and alternatives including hematoma, bleeding at the groin access sites, cardiac arrhythmias, bradycardia, and recurrence of arrhythmias. He is willing to proceed. I will keep him n.p.o. and likely proceed with an EP study and ablation later today if schedule permitting. I would also recommend checking a transthoracic echocardiogram. Thank you for allowing me to participate in the care of this patient. Job ID: [id number]
--- NOTE | 2019-09-17 14:33 | NM ---
NUCLEAR MEDICINE CARDIAC PERFUSION EXAMINATION WITH EJECTION FRACTION: 09/17/19 HISTORY: Chest pain. COMPARISON: 11/03/14. TECHNIQUE: A single day nuclear medicine cardiac perfusion examination was performed. Rest images were obtained using 10.6 millicuries of technetium 99m Sestamibi. Stress images were obtained using 31.5 millicurie s of technetium 99m Sestamibi and Adenosine. FINDINGS: Tomographic images show no fixed or reversible perfusion defects. Gated images show normal wall motio n with an ejection fraction of 55%. EDV is 111 mL. LHR is 0.3. TID is 1.2. IMPRESSION: No evidence of ischemia. POS: EAA
[2019-09-17] MEDS ORDERED: Midazolam HCl 2 mg/2 ml Vial ONE (15:29)
[2019-09-17] MEDS ORDERED: Fentanyl 100 MCG/2 ML VIAL ONE (15:29)
[2019-09-17] MEDS ORDERED: Heparin 10,000 UNITS/1 ML VIAL ONE (15:29)
[2019-09-17] MEDS ORDERED: Isoproterenol 0.2 MG/1 ML AMP ONE (15:47)
[2019-09-18 07:23] VITALS: TEMP 98
--- NOTE | 2019-09-18 08:03 | OP ---
DATE OF PROCEDURE: 09/17/2019 PROCEDURE PERFORMED: Electrophysiology study and radiofrequency ablation. REASON FOR PROCEDURE: Mr. Ledezma is a 59-year-old gentleman without history of cardiac disease, presents with rapid palpitations. EKG suggestive of AV alanna reentrant tachycardia, adenosine terminated the arrhythmia in the ER. He is here for EP study and possible ablation. DESCRIPTION OF PROCEDURE: The patient received conscious sedation with IV Versed and fentanyl. Supervised the blood pressure and oxygen saturation and heart rate throughout the procedure and adjusted the sedation for the comfort level. After adequate level of sedation achieved, the right and left femoral venous area was prepped, draped, and anesthetized with subcutaneous lidocaine. Under ultrasound guidance, the left femoral vein was cannulated x2. A 6 and 8-[place]izen [place] short sheaths were introduced through which a octapolar and a decapolar catheter was advanced to the right atrium, right ventricle, His bundle, and CS position. Pacing, mapping , and recording were performed revealing pacing in the left atrium with CS. Following that, following findings were noted. Baseline rhythm was sinus rhythm. RR 978 milliseconds, [place] 180 milliseconds, QRS 82 milliseconds, QT 380 milliseconds. The AH 137 milliseconds, HV 46 milliseconds. Antegrade Wenckebach cycle length was noted at 450 milliseconds. At baseline, retrograde was 420 milliseconds. Concentric retrograde VA conduction was seen. Atrial access to my testing was performed with AV alanna ERP was noted at 600/280 milliseconds. Burst atrial pacing did not reinduce atrial arrhythmias down to 200 milliseconds burst pacing cycle length. At this point, Isuprel was administered. On 6 mcg of Isuprel, we were able to burst induce narrow complex SVT with very short VA timing less than 80 milliseconds. Attempted ventricular override pacing reliably terminated the arrhythmia. Based on the scenario, AV alanna reentrant tachycardia was diagnosed. Through the right femoral venous access, an 8-[place]izen [place] short sheath, 4 mm ablation catheter was advanced to the right atrium. 3D map of the right atrium, including His bundle, and CS locations were obtained. Slow pathway modification was performed with a total of 4 ablations at 50 segura with 60 degrees cutoff., duration 1 min 30 seconds. There was junctional rhythm at the time of the ablation. Also transient AV block was seen, but that resolved promptly with terminating the ablation. After ablation, AV Wenckebach cycle length was 350 milliseconds. On Isuprel, the AV alanna ERP was 400/250 milliseconds. No evidence of slow pathway is found after ablation and no inducibility of the tachycardia is noted with burst atrial pacing on or off Isuprel. At the end of the case, cardiac silhouette did not change. Catheter was removed. Sheaths were pulled and manual pressure was applied for hemostasis. The patient tolerated the procedure well. No complications noted. PLAN: 1. Hold AV alanna blocking agents. 2. Monitor for recurrent arrhythmias. 3. Routine post ablation followup. Job ID: [id number] [facility]
[2019-09-18] MEDS: Famotidine 20 MG TAB PO SCH (08:47)
[2019-09-18] MEDS: Metoprolol Tartrate 25 MG TAB PO SCH (08:47)
[2019-09-18] MEDS: Enoxaparin Sodium 40 MG/0.4 ML SYRINGE SC SCH (08:47)
[2019-09-18] MEDS: Aspirin Chewable 81 MG TAB PO SCH (08:47)
--- NOTE | 2019-09-18 10:24 | PDOC.HOSPP ---
- Subjective Encounter Date: 09/18/19 Encounter Time: 10:23 Subjective: was seen today in follow-up of SVT. He does not have any complaints. He denies chest pain or dyspnea. No palpitations. - Objective Vital Signs & Weight: Vital Signs (12 hours) Temp Pulse Resp BP Pulse Ox 09/18/19 07:22 98.0 F 64 16 168/76 H 96 09/18/19 07:08 98 09/18/19 03:28 98.4 F 69 16 144/76 H 98 Weight Weight 160 lb I&O: 09/17/19 09/18/19 09/19/19 06:59 06:59 06:59 Intake Total 540 600 Balance 540 600 Result Diagrams: 09/17/19 04:19 09/17/19 04:19 Additional Labs: Accuchecks 09/17/19 20:20 POC Glucose 127 H Hospitalist ROS - Medication Medications: Active Medications Generic Name Dose Route Start Last Admin Trade Name Freq PRN Reason Stop Dose Admin Aspirin 81 mg 09/17/19 09:00 09/18/19 08:47 Aspirin Chewable PO 81 mg DAILY SONYA Administration Enoxaparin Sodium 40 mg 09/17/19 09:00 09/18/19 08:47 Lovenox SC 40 mg 0900 SONYA Administration Famotidine 20 mg 09/16/19 21:00 09/18/19 08:47 Pepcid PO 20 mg BID SONYA Administration HCTZ/Losartan Potassium 1 tab 09/17/19 09:00 09/18/19 08:47 Hyzaar 50/12.5 PO 1 tab DAILY SONYA Administration Metoprolol Tartrate 25 mg 09/16/19 21:00 09/18/19 08:47 Lopressor PO 25 mg BID SONYA Administration - Exam Eye: PERRL, anicteric sclera Heart: RRR, no murmur, no gallops, no rubs Respiratory: CTAB, no wheezes, no rales, no ronchi, normal chest expansion Gastrointestinal: soft, non-tender, non-distended, normal bowel sounds, no palpable masses Extremities: no cyanosis, no edema Hosp A/P (1) DM (diabetes mellitus) Code(s): E11.9 - TYPE 2 DIABETES MELLITUS WITHOUT COMPLICATIONS Status: Acute (2) HTN (hypertension) Code(s): I10 - ESSENTIAL (PRIMARY) HYPERTENSION Status: Acute (3) SVT (supraventricular tachycardia) Code(s): I47.1 - SUPRAVENTRICULAR TACHYCARDIA Status: Acute - Plan * SVT- patient is s/p successful ablation and is now in sinus rhythm * Continue Metoprolol which was added during this [id number] stay * HTN- blood pressure is a bit elevated- however the addition of Metoprolol should help with this.
[2019-09-18 11:28] VITALS: BP 131/66
--- NOTE | 2019-09-18 16:28 | PDOC.EP ---
- Subjective Date: 09/18/19 Time: 08:00 Interval History: Follow-up for supraventricular tachycardia following the EP study and ablation for AVNRT on 09/17/2019. Patient feels well he voices no cardiac concerns or complaints he has not had any heart racing, palpitations, chest pain, stroke or stroke-like symptoms. He has not had any bleeding from his groin access site. He feels well and is eager to discharge home - Review of Systems Constitutional: denies: chills, fever, malaise, sweats, weakness, other Respiratory: denies: cough, dry, hemoptysis, pleuritic pain, shortness of breath , SOB with excertion, sputum, wheezing, other Cardiology: denies: chest pain, edema, heart racing, light headedness, paroxysmal noc. dyspnea, orthopnea, palpitations, passing out, pleuritic pain, pressure, swelling, other - Objective Allergies/Adverse Reactions: Allergies Allergy/AdvReac Type Severity Reaction Status Date / Time No Known Drug Allergies Allergy Verified 09/16/19 15:15 Vital Signs & Weight: Vital Signs Temp Pulse Resp BP Pulse Ox 09/18/19 11:27 98.0 F 59 L 16 131/66 97 09/18/19 07:22 98.0 F 64 16 168/76 H 96 09/18/19 07:08 98 Weight 160 lb I/O: I/O 09/17/19 09/18/19 09/19/19 06:59 06:59 06:59 Intake Total 540 600 Balance 540 600 - Physical Exam General: alert & oriented x3, appears well, no apparent distress, speech clear, affect appropriate HEENT: mucus membranes moist, normocephaly Neck: supple neck, midline trachea, no JVD/HJR, no masses, no bruit, no lymphadenopathy, no thromegaly Cardiology: regular rate and rhythm, no murmur, regular rate, regular rhythm, PMI nondisplaced Lungs: clear to auscultation Neurology: cranial nerve 2-12 intact, no lateralizing findings Skin: groin sites stable - Labs Result Diagrams: 09/17/19 04:19 09/17/19 04:19 - EKG Interpretation EKG Method: Telemetry EKG shows: Sinus rhythm - Assessment/Plan Assessment/Plan: 1. Supraventricular tachycardia, -inducible for AVNRT s/p slow pathway modification 09/17/2019 2. Hypertension. 3. Chest pain. okay for discharge by EP. Heart rhythm has been stable overnight without evidence of arrhythmia recurrence. I will see him back in clinic in 6 weeks or sooner as symptoms dictate
--- NOTE | 2019-09-18 16:49 | DIS ---
DATE OF ADMISSION: 09/16/2019 DATE OF DISCHARGE: 09/18/2019 DISCHARGE DISPOSITION AND FOLLOWUP: The patient discharged home. The patient was seen and examined on the day of discharge. Denies any new complaints. INPATIENT CONSULT: Cardiology and EP. CLINICAL COURSE: The patient is a 59-year-old male, who has a history of hypertension, who presented to the emergency room with complaint of chest pain, shortness of breath, and palpitations. He was noted to be in SVT and was given adenosine, which then converted him to sinus rhythm. He was then admitted to the telemetry floor, where he did not have any further SVT. Cardiology was consulted upon admission, and due to a slightly elevated troponin of 0.081, they performed a stress test. The stress test resulted negative, and EP was consulted for the palpitations and SVT. EP evaluated the patient and performed an ablation on him on 09/17/2019, which was successful and then monitored him overnight on the telemetry floor. He had no further palpations and remained in sinus rhythm for the remainder of his hospitalization. He was discharged in stable condition without any concerns or complaints. FINAL DIAGNOSES: 1. Supraventricular tachycardia, status post successful ablation. 2. Hypertension. DISCHARGE MEDICATIONS: New medications; 1. Lopressor 25 mg p.o. b.i.d. 2. Aspirin 81 mg p.o. daily. The patient to continue Irbesartan/HCTZ 150-12.5 mg daily. DISCHARGE INSTRUCTIONS: The patient is to be off work for four days with no strenuous activities and to follow post ablation care instructions given to him. He is to also report any feelings of palpitations and to follow up with his physicians as requested. TIME SPENT: Total time coordinating the discharge of this patient was 25 minutes. Job ID: [id number] [facility]TD[facility]
--- NOTE | 2019-09-18 17:34 | EKG ---
Test Reason : Blood Pressure : / mmHG Vent. Rate : 060 BPM Atrial Rate : 060 BPM P-R Int : 178 ms QRS Dur : 084 ms QT Int : 392 ms P-R-T Axes : 075 030 051 degrees QTc Int : 392 ms Normal sinus rhythm Possible Left atrial enlargement Left ventricular hypertrophy Abnormal ECG When compared with ECG of 16-SEP-2019 11:22, (Unconfirmed) Vent. rate has decreased BY 41 BPM T wave amplitude has decreased in Anterior leads Confirmed by MAYELIN PACHECO, DR. Virk ([id number]) on 09/18/2019 5:34:22 PM Referred By: Confirmed By:DR. Moose DICK MD
== END 2019-09-18 12:43 | disposition home or self-care (01) ==
LOC: ERS 11:02 → ERHOLD 13:17 → 2NO 15:08
PROVIDERS: ADMIT Internal Medicine; ATTEND Internal Medicine
PROC: 02583ZZ Destruction of Conduction Mechanism, Percutaneous Approach (ICD-10-PCS; principal; 2019-09-17)
PROC: 4A023FZ Measurement of Cardiac Rhythm, Percutaneous Approach (ICD-10-PCS; 2019-09-17)
PROC: 4A0234Z Measurement of Cardiac Electrical Activity, Percutaneous Approach (ICD-10-PCS; 2019-09-17)
PROC: 02K83ZZ Map Conduction Mechanism, Percutaneous Approach (ICD-10-PCS; 2019-09-17)
DX: I47.1 Supraventricular tachycardia (principal); R07.89 Other chest pain; I10 Essential (primary) hypertension; F17.210 Nicotine dependence, cigarettes, uncomplicated; E11.9 Type 2 diabetes mellitus without complications; Z79.899 Other long term (current) drug therapy
CPT/HCPCS: 36415; 36416; 71045; 76942; 78452; 80048; 80053; 80061; 81003; 81015; 82550; 82553; 83735; 83880; 84443; 84484; 85025; 93005; 93010; 93017; 93306; 93613; 93623; 93653; 94760; 96372; 96374; 99152; 99153; A9500; C1730; C1769; G0378; J0153; J1644; J1650; J2250; J3010